=== PATIENT | male | born 1955 | race Caucasian/White ===

== ENCOUNTER 2022-06-18 15:13 | Emergency (ER) | payer OTHER, MEDICARE ==
[~2022-06-18] VITALS: Ht 167.6 cm; Wt 99.8 kg
[~2022-06-18 15:13] MED LIST: HUMULIN R100 UNIT/2; LANTUS 3ML100 UNITS/; PRAVASTATIN SOD20 MG PO; RAMIPRIL5 MG PO
[2022-06-18] MEDS ORDERED: BACLOFEN10 MG PO (16:48)
== END 2022-06-18 17:02 | disposition home or self-care (01) ==
LOC: FSED 15:35
DX: M54.2 Cervicalgia (principal); M54.6 Pain in thoracic spine; V43.52XA Car driver injured in collision with other type car in traffic accident, initial encounter; Y92.488 Other paved roadways as the place of occurrence of the external cause; I10 Essential (primary) hypertension; E11.9 Type 2 diabetes mellitus without complications
CPT/HCPCS: 72040; 72072; 99283

== ENCOUNTER 2022-10-22 07:23 | Inpatient (IN) | payer MEDICARE ==
[2022-10-22] VITALS (7 sets, daily range): BP systolic 144–174; BP diastolic 62–73; PULSE 71–80; RESP 16–18; TEMP 97.5–98.6; O2SAT 95–98
[~2022-10-22] VITALS: Ht 170.2 cm; Wt 102.5 kg
[~2022-10-22 07:23] MED LIST changes: +BACLOFEN10 MG PO
[2022-10-22] MEDS ORDERED: KETOROLAC TROMETHAMINE 30 MG/ML VIAL IV STA ×2 (07:32→07:34)
[2022-10-22] MEDS ORDERED: ONDANSETRON HCL INJ 2MG/ML 2ML 2 MG/ML VIAL IV STA (07:32)
[2022-10-22] MEDS ORDERED: SODIUM CHLORIDE 0.9% 1000ML 1,000 ML IV ONE (07:45)
[2022-10-22 07:53] LABS: BASOPHILS # (AUTO) 0.1 (0.0-0.1); BASOPHILS % 0.6 % (0.0-1.0); EOSINOPHILS # (AUTO) 0.5 (0.0-0.4); EOSINOPHILS % 6.3 % (0.0-6.0); HEMATOCRIT 40.4 % (38.2-49.6); HEMOGLOBIN 13.3 g/dL (14.0-18.0); LYMPHOCYTES # (AUTO) 2.7 (1.0-3.2); LYMPHOCYTES % 33.5 % (18.0-39.1); MEAN CORPUSCULAR HEMOGLOBIN 28.3 pg (28-32); MEAN CORPUSCULAR HGB CONC 32.9 g/dL (31-35); MONOCYTES # (AUTO) 0.6 (0.2-0.8); MONOCYTES % 6.7 % (4.4-11.3); NEUTROPHILS # (AUTO) 4.3 (2.1-6.9); NEUTROPHILS % 52.5 % (38.7-80.0); PLATELET COUNT 187 x10e3/uL (140-360); RED CELL DISTRIBUTION WIDTH 13.3 % (11.7-14.4)
[2022-10-22 08:16] LABS: CALCIUM 8.6 mg/dL (8.4-10.2); CREATININE, SERUM 1.71 mg/dL (0.72-1.25)
[2022-10-22 08:26] LABS: CLARITY,URINE CLEAR (CLEAR); COLOR,URINE YELLOW (YELLOW); KETONES,URINE NEGATIVE (NEGATIVE); LEUKOCYTE ESTERASE ,URINE NEGATIVE (NEGATIVE); NITRITE,URINE NEGATIVE (NEGATIVE); PROTEIN,URINE DIPSTICK 2+ (NEGATIVE); URINE UROBILINOGEN 0.2 mg/dL (0.2 - 1)
[2022-10-22 08:28] LABS: ALBUMIN 3.6 g/dL (3.5-5.0)
[2022-10-22 08:28] LABS: BACTERIA,URINE RARE /HPF; EPITHELIAL CELLS,URINE RARE /LPF; RBC,URINE 0-5 /HPF (0-5); WBC,URINE (MAN) 0-5 /HPF (0-5)
[2022-10-22] MEDS ORDERED: SODIUM CHLORIDE 0.9% 1000ML 1,000 ML IV SCH (09:45)
[2022-10-22] MEDS ORDERED: ONDANSETRON HCL INJ 2MG/ML 2ML 2 MG/ML VIAL IV PRN (09:45)
[2022-10-22] MEDS: SODIUM CHLORIDE 0.9% 1000ML 1,000 ML IV SCH ×2 (13:30→21:31)
[2022-10-22] MEDS: HYDROMORPHONE 1MG/1ML INJ IV PRN ×2 (13:31→21:24)
[2022-10-22] MEDS ORDERED: BENZONATATE 100 MG CAP PO PRN (15:45)
[2022-10-22] MEDS ORDERED: ALBUTEROL/IPRATROPIUM 3 ML NEB NEB PRN (15:45)
[2022-10-22] MEDS ORDERED: ACETAMINOPHEN 325 MG TAB PO PRN (15:45)
[2022-10-22] MEDS ORDERED: DIPHENHYDRAMINE HCL 25 MG CAP PO PRN (15:45)
[2022-10-22] MEDS ORDERED: HYDRALAZINE HCL 20 MG/ML VIAL IV PRN (15:45)
[2022-10-22] MEDS ORDERED: DEXTROSE 50% SYRINGE 50 ML IV PRN ×2 (15:45→20:45)
[2022-10-22] MEDS ORDERED: POTASSIUM CHLORIDE 20 MEQ TAB CR PO PRN (15:45)
[2022-10-22] MEDS ORDERED: LIDOCAINE 4% PATCH TP PRN (15:45)
[2022-10-22] MEDS ORDERED: SIMETHICONE 80 MG CHEW PO PRN (15:45)
[2022-10-22] MEDS ORDERED: MELATONIN 5 MG TABLET PO PRN (15:45)
[2022-10-22] MEDS ORDERED: AMLODIPINE BESY10 MG PO (19:40)
[2022-10-22] MEDS ORDERED: ASPIRIN81 MG PO (19:40)
[2022-10-22] MEDS ORDERED: ZETIA10 MG PO (19:41)
[2022-10-22] MEDS ORDERED: LOSARTAN POTAS100 MG PO (19:41)
[2022-10-22] MEDS ORDERED: LEVEMIR100 UNIT/1 SQ (19:42)
[2022-10-22] MEDS ORDERED: ATORVASTATIN CA20 MG PO (19:42)
[2022-10-22] MEDS: ATORVASTATIN 20 MG TAB PO SCH (21:23)
[2022-10-22] MEDS: ASPIRIN 81 MG CHEW TAB PO SCH (21:23)
[2022-10-22] MEDS: EZETIMIBE 10 MG TAB PO SCH (21:23)
[2022-10-22] MEDS: INSULIN GLARGINE 100 UNITS/ML VIAL SQ SCH (21:27)
[2022-10-22] MEDS: INSULIN LISPRO 100 UNIT/1 ML 3ML VIAL SQ SCH (21:28)
[2022-10-23] VITALS (10 sets, daily range): BP systolic 145–170; BP diastolic 67–79; PULSE 73–95; RESP 18–21; TEMP 97.7–98.8; O2SAT 94–98
[2022-10-23] MEDS: HYDROMORPHONE 1MG/1ML INJ IV PRN ×4 (01:56→21:38)
[2022-10-23 06:24] LABS: BASOPHILS # (AUTO) 0.1 (0.0-0.1); BASOPHILS % 0.5 % (0.0-1.0); EOSINOPHILS # (AUTO) 0.4 (0.0-0.4); EOSINOPHILS % 4.6 % (0.0-6.0); HEMATOCRIT 37.6 % (38.2-49.6); HEMOGLOBIN 12.3 g/dL (14.0-18.0); LYMPHOCYTES # (AUTO) 1.8 (1.0-3.2); LYMPHOCYTES % 19.6 % (18.0-39.1); MEAN CORPUSCULAR HEMOGLOBIN 28.5 pg (28-32); MEAN CORPUSCULAR HGB CONC 32.7 g/dL (31-35); MONOCYTES # (AUTO) 0.7 (0.2-0.8); MONOCYTES % 7.3 % (4.4-11.3); NEUTROPHILS # (AUTO) 6.2 (2.1-6.9); NEUTROPHILS % 67.7 % (38.7-80.0); PLATELET COUNT 166 x10e3/uL (140-360); RED BLOOD COUNT 4.32 x10e6/uL (4.3-5.7); RED CELL DISTRIBUTION WIDTH 13.1 % (11.7-14.4)
[2022-10-23 07:13] LABS: ALBUMIN 2.9 g/dL (3.5-5.0); ALBUMIN/GLOBULIN RATIO 0.9 (0.8-2.0); ANION GAP 11.5 mmol/L (8-16); CALCIUM 7.7 mg/dL (8.4-10.2); CREATININE, SERUM 2.02 mg/dL (0.72-1.25); POTASSIUM 4.5 mmol/L (3.5-5.1)
[2022-10-23] MEDS: ONDANSETRON HCL INJ 2MG/ML 2ML 2 MG/ML VIAL IV PRN ×2 (08:20→15:12)
[2022-10-23] MEDS: PANTOPRAZOLE SOD 40 MG TABEC PO SCH (08:23)
[2022-10-23] MEDS: SODIUM CHLORIDE 0.9% 1000ML 1,000 ML IV SCH ×2 (08:24→17:12)
[2022-10-23] MEDS: INSULIN LISPRO 100 UNIT/1 ML 3ML VIAL SQ SCH ×4 (08:36→20:42)
[2022-10-23 14:50] LABS: ANION GAP 14.3 mmol/L (8-16); CALCIUM 8.2 mg/dL (8.4-10.2); CREATININE, SERUM 1.9 mg/dL (0.72-1.25); POTASSIUM 4.3 mmol/L (3.5-5.1)
[2022-10-23] MEDS: ASPIRIN 81 MG CHEW TAB PO SCH (20:37)
[2022-10-23] MEDS: ATORVASTATIN 20 MG TAB PO SCH (20:37)
[2022-10-23] MEDS: EZETIMIBE 10 MG TAB PO SCH (20:37)
[2022-10-23] MEDS: INSULIN GLARGINE 100 UNITS/ML VIAL SQ SCH (20:41)
[2022-10-23] MEDS: DOCUSATE SODIUM 100 MG CAP PO PRN (21:37)
[2022-10-23] MEDS: AMLODIPINE BESYLATE 10 MG TAB PO SCH (23:45)
[2022-10-24] VITALS (10 sets, daily range): BP systolic 151–165; BP diastolic 57–72; PULSE 68–90; RESP 17–20; TEMP 97.9–98.9; O2SAT 93–98
[2022-10-24] MEDS: HYDROMORPHONE 1MG/1ML INJ IV PRN (02:10)
[2022-10-24] MEDS: SODIUM CHLORIDE 0.9% 1000ML 1,000 ML IV SCH ×3 (05:41→20:56)
[2022-10-24 05:54] LABS: BASOPHILS # (AUTO) 0.1 (0.0-0.1); BASOPHILS % 0.8 % (0.0-1.0); EOSINOPHILS # (AUTO) 0.4 (0.0-0.4); EOSINOPHILS % 4.1 % (0.0-6.0); HEMATOCRIT 40.2 % (38.2-49.6); LYMPHOCYTES # (AUTO) 2.6 (1.0-3.2); LYMPHOCYTES % 24.4 % (18.0-39.1); MEAN CORPUSCULAR HEMOGLOBIN 28.6 pg (28-32); MEAN CORPUSCULAR HGB CONC 32.3 g/dL (31-35); MEAN CORPUSCULAR VOLUME 88.4 fL (81-99); MONOCYTES # (AUTO) 0.7 (0.2-0.8); MONOCYTES % 6.2 % (4.4-11.3); NEUTROPHILS # (AUTO) 6.8 (2.1-6.9); PLATELET COUNT 185 x10e3/uL (140-360); RED BLOOD COUNT 4.55 x10e6/uL (4.3-5.7)
[2022-10-24 06:24] LABS: ANION GAP 13.4 mmol/L (8-16); CALCIUM 8.3 mg/dL (8.4-10.2); CREATININE, SERUM 1.79 mg/dL (0.72-1.25); POTASSIUM 4.4 mmol/L (3.5-5.1)
[2022-10-24] MEDS: INSULIN LISPRO 100 UNIT/1 ML 3ML VIAL SQ SCH ×4 (09:56→20:54)
[2022-10-24] MEDS: PANTOPRAZOLE SOD 40 MG TABEC PO SCH (09:58)
[2022-10-24] MEDS: AMLODIPINE BESYLATE 10 MG TAB PO SCH (09:58)
[2022-10-24] MEDS: DOCUSATE SODIUM 100 MG CAP PO PRN (16:45)
[2022-10-24] MEDS: EZETIMIBE 10 MG TAB PO SCH (20:46)
[2022-10-24] MEDS: ASPIRIN 81 MG CHEW TAB PO SCH (20:46)
[2022-10-24] MEDS: ATORVASTATIN 20 MG TAB PO SCH (20:47)
[2022-10-24] MEDS: INSULIN GLARGINE 100 UNITS/ML VIAL SQ SCH (20:53)
[2022-10-25] VITALS (12 sets, daily range): BP systolic 141–173; BP diastolic 62–76; PULSE 73–91; RESP 17–20; TEMP 98–98.5; O2SAT 92–98
[2022-10-25] MEDS: SODIUM CHLORIDE 0.9% 1000ML 1,000 ML IV SCH ×2 (07:04→20:25)
[2022-10-25] MEDS: INSULIN LISPRO 100 UNIT/1 ML 3ML VIAL SQ SCH ×4 (09:09→21:16)
[2022-10-25] MEDS: PANTOPRAZOLE SOD 40 MG TABEC PO SCH (09:25)
[2022-10-25] MEDS: AMLODIPINE BESYLATE 10 MG TAB PO SCH (09:25)
[2022-10-25] MEDS ORDERED: IOPAMIDOL 610MG/1ML 300 MG/ML VIAL IV ONE (12:26)
[2022-10-25] MEDS ORDERED: MIDAZOLAM HCL 2 MG/2 ML VIAL ONE (13:04)
[2022-10-25] MEDS: FENTANYL CITRATE/PF 100MCG/2 ML INJ ONE ×2 (13:29→13:36)
[2022-10-25] MEDS ORDERED: ONDANSETRON HCL 4 MG ORAL DISINTEGRATING TAB PO PRN (13:45)
[2022-10-25] MEDS: PHENAZOPYRIDINE HCL 100 MG TAB PO PRN ×2 (15:39→20:22)
[2022-10-25] MEDS: EZETIMIBE 10 MG TAB PO SCH (20:22)
[2022-10-25] MEDS: ASPIRIN 81 MG CHEW TAB PO SCH (20:23)
[2022-10-25] MEDS: ATORVASTATIN 20 MG TAB PO SCH (20:23)
[2022-10-25] MEDS: INSULIN GLARGINE 100 UNITS/ML VIAL SQ SCH (21:17)
[2022-10-26] VITALS: BP 134/77; PULSE 90; RESP 20; TEMP 99.5; O2SAT 95
[2022-10-26 04:00] VITALS: BP 162/62; PULSE 89; RESP 20; TEMP 97.9; O2SAT 94
[2022-10-26] MEDS: INSULIN LISPRO 100 UNIT/1 ML 3ML VIAL SQ SCH ×3 (07:30→16:30)
[2022-10-26 08:00] VITALS: BP 143/74; PULSE 90; RESP 17; TEMP 97.6; O2SAT 98
[2022-10-26 08:16] VITALS: BP 143/74; PULSE 90; RESP 17; TEMP 97.6; O2SAT 98
[2022-10-26 08:48] LABS: BASOPHILS % 0.4 % (0.0-1.0); EOSINOPHILS # (AUTO) 0.3 (0.0-0.4); EOSINOPHILS % 3.2 % (0.0-6.0); HEMATOCRIT 37.3 % (38.2-49.6); HEMOGLOBIN 12.5 g/dL (14.0-18.0); LYMPHOCYTES # (AUTO) 2.1 (1.0-3.2); LYMPHOCYTES % 19.4 % (18.0-39.1); MEAN CORPUSCULAR HEMOGLOBIN 28.6 pg (28-32); MEAN CORPUSCULAR HGB CONC 33.5 g/dL (31-35); MEAN CORPUSCULAR VOLUME 85.4 fL (81-99); MONOCYTES # (AUTO) 0.7 (0.2-0.8); MONOCYTES % 6.6 % (4.4-11.3); NEUTROPHILS # (AUTO) 7.5 (2.1-6.9); NEUTROPHILS % 70.2 % (38.7-80.0); PLATELET COUNT 176 x10e3/uL (140-360); RED BLOOD COUNT 4.37 x10e6/uL (4.3-5.7)
[2022-10-26] MEDS: PANTOPRAZOLE SOD 40 MG TABEC PO SCH (08:57)
[2022-10-26] MEDS: AMLODIPINE BESYLATE 10 MG TAB PO SCH (08:57)
[2022-10-26 09:11] LABS: ANION GAP 12.9 mmol/L (8-16); CALCIUM 8.4 mg/dL (8.4-10.2); CREATININE, SERUM 1.19 mg/dL (0.72-1.25); POTASSIUM 3.9 mmol/L (3.5-5.1)
[2022-10-26 11:28] VITALS: BP 161/65; PULSE 87; RESP 19; TEMP 98.5; O2SAT 95
[2022-10-26 16:36] VITALS: BP 164/67; PULSE 90; RESP 19; TEMP 98.4; O2SAT 96
== END 2022-10-26 18:15 | disposition home or self-care (01) | DRG 694 ==
LOC: ER 07:28 → ERHOLD 09:42 → MED/SURG3 10:56
PROVIDERS: ADMIT Internal Medicine; ATTEND Internal Medicine
PROC: BT141ZZ Fluoroscopy of Kidneys, Ureters and Bladder using Low Osmolar Contrast (ICD-10-PCS; 2022-10-25)
PROC: 0TCB8ZZ Extirpation of Matter from Bladder, Via Natural or Artificial Opening Endoscopic (ICD-10-PCS; 2022-10-25)
PROC: 0T7D8ZZ Dilation of Urethra, Via Natural or Artificial Opening Endoscopic (ICD-10-PCS; principal; 2022-10-25 12:34)
DX: N13.2 Hydronephrosis with renal and ureteral calculous obstruction (principal); Z20.822 Contact with and (suspected) exposure to COVID-19; E11.9 Type 2 diabetes mellitus without complications; I10 Essential (primary) hypertension; E78.5 Hyperlipidemia, unspecified; D64.9 Anemia, unspecified; E66.9 Obesity, unspecified; N17.9 Acute kidney failure, unspecified; Z79.4 Long term (current) use of insulin; Z85.038 Personal history of other malignant neoplasm of large intestine; Z92.21 Personal history of antineoplastic chemotherapy; Z90.49 Acquired absence of other specified parts of digestive tract; Z87.891 Personal history of nicotine dependence; Z68.35 Body mass index [BMI] 35.0-35.9, adult; Z79.82 Long term (current) use of aspirin
CPT/HCPCS: 0223U; 36415; 74018; 74176; 74420; 80048; 80053; 81001; 82948; 83970; 84550; 85025; 88300; 93005; 94799; 96360; 96361; 99284; C1758; C1769; J0696; J1170; J1815; J1885; J2250; J2405; J7030

== ENCOUNTER → 2023-08-02 | Day surgery (SDC) | payer MEDICARE ==
[2023-08-01 11:27] LABS: BASOPHILS # (AUTO) 0.1 (0.0-0.1); BASOPHILS % 0.9 % (0.0-1.0); EOSINOPHILS # (AUTO) 0.4 (0.0-0.4); EOSINOPHILS % 6.2 % (0.0-6.0); HEMATOCRIT 37.9 % (38.2-49.6); HEMOGLOBIN 12.8 g/dL (14.0-18.0); LYMPHOCYTES # (AUTO) 2.2 (1.0-3.2); LYMPHOCYTES % 31.3 % (18.0-39.1); MEAN CORPUSCULAR HEMOGLOBIN 29.6 pg (28-32); MEAN CORPUSCULAR HGB CONC 33.8 g/dL (31-35); MEAN CORPUSCULAR VOLUME 87.5 fL (81-99); MONOCYTES # (AUTO) 0.4 (0.2-0.8); MONOCYTES % 6.2 % (4.4-11.3); NEUTROPHILS # (AUTO) 3.8 (2.1-6.9); NEUTROPHILS % 55.1 % (38.7-80.0); PLATELET COUNT 149 x10e3/uL (140-360); RED BLOOD COUNT 4.33 x10e6/uL (4.3-5.7); RED CELL DISTRIBUTION WIDTH 13.4 % (11.7-14.4); WHITE BLOOD COUNT 6.94 x10e3/uL (4.8-10.8)
[2023-08-01 11:46] LABS: ALBUMIN 3.1 g/dL (3.5-5.0); ANION GAP 12.1 mmol/L (8-16); BILIRUBIN,TOTAL 0.8 mg/dL (0.2-1.2); CALCIUM 8.8 mg/dL (8.4-10.2); CREATININE, SERUM 1.24 mg/dL (0.72-1.25); POTASSIUM 4.1 mmol/L (3.5-5.1); TOTAL PROTEIN 6.3 g/dL (6.5-8.1)
[~2023-08-02] MED LIST changes: +AMLODIPINE BESY10 MG PO; +AMOX TR-K CLV1 EAC2 PO; +ASPIRIN81 MG PO; +ATORVASTATIN CA20 MG PO; +CENTRUM ADULTS1 EACH PO; +COQ-10100 MG PO; +DEXAMETHASONE SOD PHOS INJ 4 MG/ML SDV ONE; +DEXTROSE 5% 250ML 250 ML IV ONE; +FENTANYL CITRATE/PF 100MCG/2 ML INJ ONE; +FISH OIL 1,0001 EACH PO; +FLOMAX0.4 MG PO; +HUMALOG MI100 UNIT/2 SQ; +HYDROCODON-ACE1 EA11 PO; +IOPAMIDOL 370 MG/ML 100 ML INFUS..BTL INJ ONE; +IOPAMIDOL 610MG/1ML 300 MG/ML VIAL IV ONE; +LEVEMIR100 UNIT/1 SQ; +LIDOCAINE HCL 2% LOCAL INJ 5 ML SDV VIAL INJ ONE; +LOSARTAN POTAS100 MG PO; +ONDANSETRON HCL INJ 2MG/ML 2ML 2 MG/ML VIAL ONE; +PREDNISONE10 MG PO; +PROPOFOL IV EMULSION 10 MG/ML 20 ML VIAL ONE; +SEVOFLURANE INHAL SOLN 250 ML PEN BTL ONE; +VALACYCLOVIR1000 MG PO; +ZETIA10 MG PO
[2023-08-02] MEDS: LACTATED RINGER'S 1,000 ML ONE (06:15)
[2023-08-02] MEDS: CEFTRIAXONE 1 GM VIAL ONE (06:15)
[2023-08-02 08:22] VITALS: TEMP 98.2
[2023-08-02] MEDS: DEXTROSE 50% SYRINGE 50 ML IV ONE (08:30)
[2023-08-02] MEDS: TRAMADOL HCL 50 MG TAB ONE (08:53)
[2023-08-02] MEDS: PHENAZOPYRIDINE HCL 100 MG TAB ONE (09:30)
[2023-08-02 09:55] VITALS: BP 160/62; PULSE 73; RESP 17; O2SAT 96
== END | disposition home or self-care (01) ==
LOC: OR 05:34
PROVIDERS: ATTEND Urology
DX: N35.812 Other bulbous urethral stricture, male (principal); C67.9 Malignant neoplasm of bladder, unspecified; N39.0 Urinary tract infection, site not specified; N40.0 Benign prostatic hyperplasia without lower urinary tract symptoms; N32.89 Other specified disorders of bladder; N20.0 Calculus of kidney; G47.33 Obstructive sleep apnea (adult) (pediatric); I10 Essential (primary) hypertension; E78.5 Hyperlipidemia, unspecified; E11.9 Type 2 diabetes mellitus without complications; Z88.6 Allergy status to analgesic agent; Z01.810 Encounter for preprocedural cardiovascular examination; Z01.812 Encounter for preprocedural laboratory examination; Z01.818 Encounter for other preprocedural examination; Z79.82 Long term (current) use of aspirin; Z79.4 Long term (current) use of insulin; Z87.891 Personal history of nicotine dependence
CPT/HCPCS: 36415 ×2; 52005; 52276; 52284; 71046; 74420; 80053; 82948; 85025; 93005; C1726; C1758; J0696; J1100; J2001; J2405; J2704; J3010; J7070; J7121; J7799; Q9967

== ENCOUNTER 2024-02-11 01:33 | Emergency (ER) | payer MEDICARE ==
[~2024-02-11] VITALS: Ht 165.1 cm; Wt 108.9 kg
[~2024-02-11 01:33] MED LIST changes: +ALBUTEROL2.5 MG/3 M INH; -DEXAMETHASONE SOD PHOS INJ 4 MG/ML SDV ONE; -DEXTROSE 5% 250ML 250 ML IV ONE; -FENTANYL CITRATE/PF 100MCG/2 ML INJ ONE; -IOPAMIDOL 370 MG/ML 100 ML INFUS..BTL INJ ONE; -IOPAMIDOL 610MG/1ML 300 MG/ML VIAL IV ONE; -LIDOCAINE HCL 2% LOCAL INJ 5 ML SDV VIAL INJ ONE; -ONDANSETRON HCL INJ 2MG/ML 2ML 2 MG/ML VIAL ONE; -PROPOFOL IV EMULSION 10 MG/ML 20 ML VIAL ONE; +PROVENTIL HFA6.7 GM INH; -SEVOFLURANE INHAL SOLN 250 ML PEN BTL ONE; +TAMIFLU75 MG PO
[2024-02-11 01:38] VITALS: PULSE 82; RESP 18; TEMP 98.4
[2024-02-11] MEDS: DIPHENHYDRAMINE HCL 25 MG CAP PO ONE (02:29)
[2024-02-11 02:35] VITALS: BP 177/73; PULSE 72; RESP 18; TEMP 98.4; O2SAT 97
== END 2024-02-11 02:35 | disposition home or self-care (01) ==
LOC: FSED 02:24
DX: R09.89 Other specified symptoms and signs involving the circulatory and respiratory systems (principal); I10 Essential (primary) hypertension; E11.9 Type 2 diabetes mellitus without complications; Z11.52 Encounter for screening for COVID-19
CPT/HCPCS: 99282

== ENCOUNTER 2024-06-12 10:23 | Inpatient (IN) | payer MEDICARE ==
[2024-06-12] VITALS (9 sets, daily range): BP systolic 147–196; BP diastolic 58–76; PULSE 74–90; RESP 17–24; TEMP 98.1–98.9; O2SAT 93–98
[~2024-06-12] VITALS: Ht 170.2 cm; Wt 108.4 kg
[2024-06-12] MEDS: ASPIRIN 325 MG TAB PO STA (11:31)
[2024-06-12] MEDS: ONDANSETRON HCL INJ 2MG/ML 2ML 2 MG/ML VIAL IV STA (11:31)
[2024-06-12] MEDS: Morphine 2mg Syringe 2 MG/ML SYR IV ONE (11:31)
[2024-06-12] MEDS: HYDRALAZINE HCL 20 MG/ML VIAL IV ONE (11:31)
[2024-06-12] MEDS ORDERED: IOPAMIDOL 370 MG/ML 100 ML INFUS..BTL INJ ONE (12:24)
[2024-06-12] MEDS ORDERED: SODIUM CHLORIDE FLUSH 10 ML SYR INJ PRN (14:45)
[2024-06-12] MEDS ORDERED: Morphine 2mg Syringe 2 MG/ML SYR IV PRN (14:45)
[2024-06-12] MEDS ORDERED: ONDANSETRON HCL INJ 2MG/ML 2ML 2 MG/ML VIAL IV PRN (14:45)
[2024-06-12] MEDS ORDERED: ASPIRIN 81 MG CHEW TAB PO ONE (14:45)
[2024-06-12] MEDS ORDERED: ATORVASTATIN CA40 MG PO (20:19)
[2024-06-12] MEDS ORDERED: EZETIMIBE10 MG PO (20:19)
[2024-06-12] MEDS ORDERED: ALBUTEROL SULF 0.083% NEB SOLN 3 ML NEB INH PRN (20:30)
[2024-06-12] MEDS ORDERED: ALBUTEROL 90 MCG/ACT INHALER INH PRN (20:30)
[2024-06-12] MEDS ORDERED: DEXTROSE 50% SYRINGE 50 ML IV PRN (20:45)
[2024-06-12] MEDS ORDERED: ENALAPRILAT IV INJ 1.25 MG/ML VIAL IV PRN (21:00)
[2024-06-12] MEDS ORDERED: ASPIRIN 81 MG CHEW TAB PO SCH (21:00)
[2024-06-12] MEDS: INSULIN LISPRO 100 UNIT/1 ML 3ML VIAL SQ SCH (21:45)
[2024-06-12] MEDS: ATORVASTATIN 40 MG TAB PO SCH (21:49)
[2024-06-12] MEDS: TAMSULOSIN HCL 0.4 MG CAP PO SCH (21:49)
[2024-06-12] MEDS: VALSARTAN 160 MG TAB PO ONE (21:49)
[2024-06-12] MEDS: METOPROLOL TARTRATE 25 MG TAB PO SCH (21:50)
[2024-06-12] MEDS: MELATONIN 5 MG TABLET PO PRN (21:50)
[2024-06-12] MEDS: EZETIMIBE 10 MG TAB PO SCH (21:52)
[2024-06-12] MEDS: ALBUTEROL/IPRATROPIUM 3 ML NEB NEB PRN (22:19)
[2024-06-12 23:34] LABS: ANION GAP 13.7 mmol/L (8-16); CALCIUM 8.3 mg/dL (8.4-10.2); CREATININE, SERUM 1.55 mg/dL (0.72-1.25); POTASSIUM 3.7 mmol/L (3.5-5.1)
[2024-06-12 23:55] LABS: THYROID STIMULATING HORMONE 2.947 uIU/mL (0.350-4.940)
[2024-06-13] VITALS (8 sets, daily range): BP systolic 134–163; BP diastolic 52–63; PULSE 71–82; RESP 18–20; TEMP 97.9–99.1; O2SAT 94–98
[2024-06-13] MEDS: VALSARTAN 160 MG TAB PO SCH (05:05)
[2024-06-13 05:11] LABS: TROPONIN I 0.006 ng/mL (0-0.300)
[2024-06-13 06:10] LABS: ANION GAP 14.8 mmol/L (8-16); CREATININE, SERUM 1.78 mg/dL (0.72-1.25); POTASSIUM 3.8 mmol/L (3.5-5.1)
[2024-06-13 06:34] LABS: TROPONIN I 0.007 ng/mL (0-0.300)
[2024-06-13] MEDS: INSULIN GLARGINE 100 UNITS/ML VIAL SQ SCH (07:30)
[2024-06-13] MEDS: SODIUM CHLORIDE 0.9% 500ML 500 ML ONE (07:49)
[2024-06-13 08:25] LABS: BASOPHILS % 0.5 % (0.0-1.0); EOSINOPHILS # (AUTO) 0.2 (0.0-0.4); EOSINOPHILS % 3.6 % (0.0-6.0); HEMOGLOBIN 11.1 g/dL (14.0-18.0); LYMPHOCYTES # (AUTO) 1.2 (1.0-3.2); LYMPHOCYTES % 20.4 % (18.0-39.1); MEAN CORPUSCULAR HEMOGLOBIN 29.4 pg (28-32); MEAN CORPUSCULAR HGB CONC 32.6 g/dL (31-35); MEAN CORPUSCULAR VOLUME 90.2 fL (81-99); MONOCYTES # (AUTO) 0.5 (0.2-0.8); MONOCYTES % 8.4 % (4.4-11.3); NEUTROPHILS % 66.9 % (38.7-80.0); PLATELET COUNT 161 x10e3/uL (140-360); RED BLOOD COUNT 3.77 x10e6/uL (4.3-5.7); RED CELL DISTRIBUTION WIDTH 13.8 % (11.7-14.4); WHITE BLOOD COUNT 6.04 x10e3/uL (4.8-10.8)
[2024-06-13] MEDS ORDERED: TAMSULOSIN HCL 0.4 MG CAP PO SCH (09:00)
[2024-06-13] MEDS ORDERED: ASPIRIN 325 MG TAB EC PO SCH (09:00)
[2024-06-13] MEDS ORDERED: INSULIN GLARGINE 100 UNITS/ML VIAL SQ SCH (09:00)
[2024-06-13] MEDS ORDERED: LOSARTAN POTASSIUM 100 MG TAB PO SCH (09:00)
[2024-06-13] MEDS: AMLODIPINE BESYLATE 10 MG TAB PO SCH (09:36)
[2024-06-13] MEDS: MULTIVITAMINS/MINERALS TAB PO SCH (09:36)
[2024-06-13] MEDS: ASPIRIN 81 MG ENTERIC COATED PO SCH (09:36)
[2024-06-13] MEDS: PANTOPRAZOLE SOD 40 MG TABEC PO SCH (09:37)
[2024-06-13] MEDS: FLUTICASONE PROPIONATE NASAL SPRAY NS SCH (09:45)
[2024-06-13] MEDS: LORATADINE 10 MG TAB PO SCH (10:25)
[2024-06-13 15:49] LABS: CREATINE KINASE 150 IU/L (30-200)
[2024-06-13 15:55] LABS: TROPONIN I < 0.001 ng/mL (0-0.300)
[2024-06-13] MEDS: MONTELUKAST SODIUM 10 MG TAB PO SCH (21:02)
[2024-06-14] VITALS (9 sets, daily range): BP systolic 143–177; BP diastolic 57–69; PULSE 67–87; RESP 18–22; TEMP 97.9–98.8; O2SAT 93–100
[2024-06-14 08:27] LABS: BASOPHILS # (AUTO) 0.1 (0.0-0.1); BASOPHILS % 0.7 % (0.0-1.0); EOSINOPHILS # (AUTO) 0.7 (0.0-0.4); EOSINOPHILS % 10.4 % (0.0-6.0); HEMATOCRIT 35.9 % (38.2-49.6); HEMOGLOBIN 11.7 g/dL (14.0-18.0); LYMPHOCYTES # (AUTO) 1.8 (1.0-3.2); LYMPHOCYTES % 26.4 % (18.0-39.1); MEAN CORPUSCULAR HEMOGLOBIN 29.3 pg (28-32); MEAN CORPUSCULAR HGB CONC 32.6 g/dL (31-35); MEAN CORPUSCULAR VOLUME 89.8 fL (81-99); MONOCYTES # (AUTO) 0.6 (0.2-0.8); MONOCYTES % 8.2 % (4.4-11.3); NEUTROPHILS # (AUTO) 3.7 (2.1-6.9); NEUTROPHILS % 54.2 % (38.7-80.0); PLATELET COUNT 162 x10e3/uL (140-360); RED CELL DISTRIBUTION WIDTH 13.4 % (11.7-14.4); WHITE BLOOD COUNT 6.81 x10e3/uL (4.8-10.8)
[2024-06-14 08:52] LABS: ANION GAP 13.2 mmol/L (8-16); CALCIUM 8.3 mg/dL (8.4-10.2); CREATININE, SERUM 1.93 mg/dL (0.72-1.25); POTASSIUM 4.2 mmol/L (3.5-5.1)
[2024-06-14 14:55] LABS: CHOL/HDL RATIO 3.3 (3.9-4.7)
[2024-06-14] MEDS: NIFEDIPINE CR 30 MG TAB PO SCH (16:17)
[2024-06-14] MEDS: METOPROLOL TARTRATE 25 MG TAB PO SCH (16:22)
[2024-06-14] MEDS: HYDROCODONE/APAP 5MG-325MG TAB PO PRN (21:30)
[2024-06-15] VITALS (9 sets, daily range): BP systolic 103–144; BP diastolic 51–70; PULSE 71–81; RESP 18–20; TEMP 97.7–98.2; O2SAT 93–99
[2024-06-15] MEDS: METOPROLOL TARTRATE 25 MG TAB PO ONE (12:32)
[2024-06-15] MEDS: METOPROLOL TARTRATE 50 MG TAB PO SCH (16:44)
[2024-06-15] MEDS: TEMAZEPAM 7.5 MG CAP PO SCH (20:47)
[2024-06-16] VITALS (10 sets, daily range): BP systolic 128–161; BP diastolic 58–63; PULSE 71–88; RESP 18–20; TEMP 97.7–98.6; O2SAT 95–100
[2024-06-16 05:45] LABS: BASOPHILS # (AUTO) 0.1 (0.0-0.1); BASOPHILS % 0.9 % (0.0-1.0); EOSINOPHILS # (AUTO) 0.6 (0.0-0.4); EOSINOPHILS % 9.2 % (0.0-6.0); HEMATOCRIT 33.2 % (38.2-49.6); HEMOGLOBIN 11.1 g/dL (14.0-18.0); LYMPHOCYTES % 29.7 % (18.0-39.1); MEAN CORPUSCULAR HEMOGLOBIN 29.3 pg (28-32); MEAN CORPUSCULAR HGB CONC 33.4 g/dL (31-35); MEAN CORPUSCULAR VOLUME 87.6 fL (81-99); MONOCYTES # (AUTO) 0.5 (0.2-0.8); MONOCYTES % 7.2 % (4.4-11.3); NEUTROPHILS # (AUTO) 3.6 (2.1-6.9); NEUTROPHILS % 52.9 % (38.7-80.0); PLATELET COUNT 178 x10e3/uL (140-360); RED BLOOD COUNT 3.79 x10e6/uL (4.3-5.7); RED CELL DISTRIBUTION WIDTH 13.1 % (11.7-14.4); WHITE BLOOD COUNT 6.83 x10e3/uL (4.8-10.8)
[2024-06-16 06:18] LABS: ANION GAP 13.3 mmol/L (8-16); CALCIUM 8.1 mg/dL (8.4-10.2); CREATININE, SERUM 1.6 mg/dL (0.72-1.25); POTASSIUM 4.3 mmol/L (3.5-5.1)
[2024-06-16] MEDS: NIFEDIPINE CR 30 MG TAB PO ONE (11:23)
[2024-06-16] MEDS: NIFEDIPINE CR 30 MG TAB PO SCH (22:28)
[2024-06-17] VITALS: BP 134/62; PULSE 73; RESP 18; TEMP 98.5; O2SAT 96
[2024-06-17 04:00] VITALS: BP 123/56; PULSE 69; RESP 18; TEMP 97.8; O2SAT 99
[2024-06-17 06:08] LABS: BASOPHILS # (AUTO) 0.1 (0.0-0.1); BASOPHILS % 0.8 % (0.0-1.0); EOSINOPHILS # (AUTO) 0.7 (0.0-0.4); EOSINOPHILS % 9.2 % (0.0-6.0); HEMATOCRIT 38.4 % (38.2-49.6); HEMOGLOBIN 12.6 g/dL (14.0-18.0); LYMPHOCYTES # (AUTO) 2.5 (1.0-3.2); LYMPHOCYTES % 32.5 % (18.0-39.1); MEAN CORPUSCULAR HEMOGLOBIN 29.3 pg (28-32); MEAN CORPUSCULAR HGB CONC 32.8 g/dL (31-35); MEAN CORPUSCULAR VOLUME 89.3 fL (81-99); MONOCYTES # (AUTO) 0.5 (0.2-0.8); MONOCYTES % 7.1 % (4.4-11.3); NEUTROPHILS # (AUTO) 3.8 (2.1-6.9); NEUTROPHILS % 49.7 % (38.7-80.0); PLATELET COUNT 206 x10e3/uL (140-360); RED CELL DISTRIBUTION WIDTH 12.9 % (11.7-14.4); WHITE BLOOD COUNT 7.62 x10e3/uL (4.8-10.8)
[2024-06-17 06:34] LABS: ANION GAP 15.3 mmol/L (8-16); CALCIUM 8.8 mg/dL (8.4-10.2); CREATININE, SERUM 1.74 mg/dL (0.72-1.25); POTASSIUM 4.3 mmol/L (3.5-5.1)
[2024-06-17 07:32] VITALS: PULSE 88; RESP 18; O2SAT 94
[2024-06-17 08:28] VITALS: BP 150/63; PULSE 89; RESP 20; TEMP 98.1; O2SAT 95
[2024-06-17 08:50] VITALS: BP 150/63; PULSE 89
[2024-06-17] MEDS ORDERED: ATORVASTATIN 40 MG TAB PO SCH (21:00)
== END 2024-06-17 09:52 | disposition home or self-care (01) | DRG 305 ==
LOC: FSED 10:29 → ERHOLD 14:42 → MED/SURG2 16:31 → OBSVTOIN 06-14 14:14
PROVIDERS: ADMIT Internal Medicine; ATTEND Internal Medicine
DX: I16.0 Hypertensive urgency (principal); I16.1 Hypertensive emergency; Z99.81 Dependence on supplemental oxygen; E11.22 Type 2 diabetes mellitus with diabetic chronic kidney disease; I12.9 Hypertensive chronic kidney disease with stage 1 through stage 4 chronic kidney disease, or unspecified chronic kidney disease; N18.30 Chronic kidney disease, stage 3 unspecified; R07.89 Other chest pain; E78.5 Hyperlipidemia, unspecified; G47.33 Obstructive sleep apnea (adult) (pediatric); E66.01 Morbid (severe) obesity due to excess calories; Z68.37 Body mass index [BMI] 37.0-37.9, adult; M19.90 Unspecified osteoarthritis, unspecified site; J30.9 Allergic rhinitis, unspecified; Z79.82 Long term (current) use of aspirin; Z79.4 Long term (current) use of insulin; Z85.51 Personal history of malignant neoplasm of bladder; Z85.038 Personal history of other malignant neoplasm of large intestine; Z92.21 Personal history of antineoplastic chemotherapy; Z90.49 Acquired absence of other specified parts of digestive tract; Z88.5 Allergy status to narcotic agent; Z87.891 Personal history of nicotine dependence
CPT/HCPCS: 36415; 71275; 72050; 80048; 80053; 80061; 80076; 82550; 83036; 83735; 83880; 84443; 84484; 85025; 85379; 93005; 93306; 94660; 94799; 99252; 99283; G0378; J0360; J0696; J1815; J2270; J2405; J7040; Q9967

== ENCOUNTER → 2024-07-17 | Outpatient (REF) | payer MEDICARE ==
[~2024-07-17] MED LIST changes: +ATORVASTATIN CA40 MG PO; +EZETIMIBE10 MG PO
== END ==
LOC: US 13:21
PROVIDERS: ATTEND Specialist
DX: N17.9 Acute kidney failure, unspecified (principal)
CPT/HCPCS: 76770

== ENCOUNTER 2024-08-01 01:14 | Emergency (ER) | payer MEDICARE ==
[~2024-08-01] VITALS: Ht 170.2 cm; Wt 104.3 kg
[2024-08-01 01:17] VITALS: PULSE 81; RESP 20; TEMP 98.2
[2024-08-01] MEDS: SODIUM CHLORIDE 0.9% 500ML 500 ML IV STA (02:01)
[2024-08-01] MEDS ORDERED: SORBITOL1 ML PO (04:17)
[2024-08-01] MEDS ORDERED: COLACE100 M1 PO (04:17)
[2024-08-01] MEDS ORDERED: RECTIV30 GM RC (04:17)
[2024-08-01 04:22] VITALS: BP 171/75; PULSE 71; RESP 16; TEMP 98.5; O2SAT 96
== END 2024-08-01 04:33 | disposition home or self-care (01) ==
LOC: FSED 01:17
DX: K59.00 Constipation, unspecified (principal); K60.2 Anal fissure, unspecified; K64.9 Unspecified hemorrhoids; I12.9 Hypertensive chronic kidney disease with stage 1 through stage 4 chronic kidney disease, or unspecified chronic kidney disease; E11.22 Type 2 diabetes mellitus with diabetic chronic kidney disease; E11.65 Type 2 diabetes mellitus with hyperglycemia; N18.9 Chronic kidney disease, unspecified; Z85.038 Personal history of other malignant neoplasm of large intestine; Z85.51 Personal history of malignant neoplasm of bladder; G47.33 Obstructive sleep apnea (adult) (pediatric); F41.9 Anxiety disorder, unspecified
CPT/HCPCS: 74176; 80053; 81003; 85025; 99284; J7040